=== PATIENT | female | born 1990 | race Caucasian/White ===

== ENCOUNTER 2020-01-17 13:33 | Inpatient (IN) | payer OTHER ==
--- NOTE | 2020-01-17 13:43 | P.HPOB ---
History of Present Illness H&P Date: 01/17/20 Chief Complaint: Strong regular uterine contractions, and yellow fluid leakage since 11 AM. This is a 29-year-old white female 2 para 1001 EDC 01/16/2020 at 40 and one sevenths weeks' gestation. Patient presents today with a history of strong uterine contractions, and yellow fluid leakage since 11 AM. Fetus is been active throughout the . Past medical history significant for anxiety and asthma. Past surgical history wisdom teeth extracted in the past. Current medications Flonase ALLERGY relief nasal spray as needed, Protonix inhaler as needed, vitamin daily, Prozac 20 mg daily, Zyrtec 10 mg daily. ALLERGIES none known. Family history significant for hypertension, hypothyroidism, type 2 diabetes, and cardiac disease. Social history patient is , her 's name is Larry. She denies alcohol tobacco or drug use. She works in the medical field. Obstetric history significant for positive group B strep cultures. Blood type is A+, rubella status immune. Pap smear, urine culture, hepatitis B surface antigen, HIV testing, rubella, gonorrhea and chlamydia cultures all negative. One-hour Glucola 79. On exam this is a pleasant white female who is 5 foot 4-1/2 inches, approximately 190 pounds, vital signs are stable and patient is afebrile. The general physical exam is within normal limits. Cervix is 6-7 cm dilated, 100% effaced, -1 station, vertex presentation. Artificial amniorrhexis of a fore bag reveals dark meconium-stained fluid. heart rate is consistent with reactive NST. Impression: 40 and one sevenths weeks intrauterine , active early labor. Positive group B strep cultures. Meconium-stained fluid. Plan: Penicillin G per hospital protocol. Close maternal and surveillance. Patient is requesting epidural, anesthesia is aware. Anticipate normal spontaneous vaginal delivery. Review of Systems Constitutional: Reports as per HPI Past Medical History Past Medical History: Asthma History of Any Multi-Drug Resistant Organisms: None Reported Additional Past Surgical History / Comment(s): [place] Teeth Extraction Past Anesthesia/Blood Transfusion Reactions: No Reported Reaction Past Psychological History: No Psychological Hx Reported, Anxiety Past Alcohol Use History: None Reported Past Drug Use History: None Reported - Past Family History Father Family Medical History: Diabetes Mellitus Additional Family Medical History / Comment(s): Type 2 Mother Family Medical History: Hypertension, Thyroid Disorder Additional Family Medical History / Comment(s): Hypothryoid Medications and Allergies Home Medications Medication Instructions Recorded Confirmed Type Budesonide [Pulmicort] 0.25 mg PO DAILY 12/01/15 12/01/15 History Fluticasone Nasal [place] [Flonase 1 spray EA NOSTRIL DAILY 12/01/15 12/01/15 History Nasal [place]] Multivit No.40/Iron/Folat1/Dha 1 tab PO DAILY 12/01/15 12/01/15 History [Prenate Essential Softgel] Allergies Allergy/AdvReac Type Severity Reaction Status Date / Time No Known Allergies Allergy Verified 12/01/15 06:11 Exam See dictation under HPI please Assessment and Plan Assessment: 40 and one sevenths weeks intrauterine , active spontaneous labor, meconium-stained fluid, positive group B strep cultures. All signs reassuring. Plan: Admit patient. Penicillin G prophylaxis per hospital protocol. Close maternal and surveillance. Analgesic options reviewed, patient requesting epidural. Anticipate normal spontaneous vaginal delivery. Time with Patient: Less than 30
[2020-01-17] MEDS ORDERED: CARBOPROST TROMETHAMINE 250 MCG/ML 1 ML AMP IM PRN (13:48)
[2020-01-17] MEDS ORDERED: TERBUTALINE 1 MG/ML VIAL SQ PRN (13:48)
[2020-01-17] MEDS ORDERED: OXYTOCIN 10 UNIT/ML 1 ML VIAL IM PRN (13:48)
[2020-01-17] MEDS ORDERED: METHYLERGONOVINE 0.2 MG/ML 1 ML AMP IM PRN (13:48)
[2020-01-17] MEDS ORDERED: LIDOCAINE 0.5% (PF) 5 MG/ML (50 ML SDV) SQ PRN (13:48)
[2020-01-17] MEDS ORDERED: PENICILLIN G POTASSIUM 5,000,000 UNIT in DEXTROSE 5% IN WATER 100 ML IVPB STA ×2 (13:51)
[2020-01-17] MEDS: LACTATED RINGERS 1,000 ML IV SCH ×2 (13:58→14:20)
[2020-01-17] MEDS ORDERED: OXYTOCIN 30 UNITS/500 ML NS 30 UNIT in SALINE 1 500ML.BAG IV SCH (14:00)
[2020-01-17 14:06] LABS: Basophils % (A) 0 %; Eosinophils # (A) 0.1 k/uL (0-0.7); Eosinophils % (A) 1 %; Lymphocytes # (A) 0.9 k/uL (1.0-4.8); Lymphocytes % (A) 11 %; MCH 29.2 pg (25.0-35.0); MCHC 33.3 g/dL (31.0-37.0); MCV 87.8 fL (80.0-100.0); Mean Platelet Volume 8.5; Monocytes # (A) 0.4 k/uL (0-1.0); Monocytes % (A) 5 %; Neutrophils # (A) 6.7 k/uL (1.3-7.7); Neutrophils % (A) 81 %; Platelet Count 210 k/uL (150-450); RBC 4.78 m/uL (3.80-5.40); RDW 12.9 % (11.5-15.5); WBC 8.3 k/uL (3.8-10.6)
[2020-01-17] MEDS ORDERED: fentaNYL (PF) 50 MCG/ML 5 ML AMP ONE (14:19)
[2020-01-17] MEDS ORDERED: SODIUM CHLORIDE 0.9% 100 ML BAG ONE (14:19)
[2020-01-17] MEDS ORDERED: ROPIVACAINE 5MG/ML 20ML VIAL ONE (14:19)
[2020-01-17] MEDS ORDERED: diphenhydrAMINE 50 MG/ML 1 ML VIAL IVP PRN ×2 (17:26)
[2020-01-17] MEDS ORDERED: ACETAMINOPHEN TAB 325 MG TAB PO PRN (17:26)
[2020-01-17] MEDS ORDERED: diphenhydrAMINE 50 MG CAP PO PRN (17:26)
[2020-01-17] MEDS ORDERED: diphenhydrAMINE 25 MG CAP PO PRN (17:26)
[2020-01-17] MEDS ORDERED: SIMETHICONE 80 MG CHEWABLE PO PRN (17:26)
[2020-01-17] MEDS ORDERED: BENZOCAINE/MENTHOL SPRAY 1 GM/SPRAY AEROSOL TOPICAL PRN (17:26)
[2020-01-17] MEDS ORDERED: HYDROCORTISONE 2.5% RECTAL CREAM 30 GM TUBE RECTAL PRN (17:26)
[2020-01-17] MEDS ORDERED: diphenhydrAMINE ELIXIR 25 MG/10 ML CUP PO PRN (17:26)
[2020-01-17] MEDS ORDERED: ZOLPIDEM 5 MG TAB PO PRN (17:26)
[2020-01-17] MEDS ORDERED: LANOLIN CREAM 5 GM TUBE TOPICAL PRN (17:26)
--- NOTE | 2020-01-17 17:26 | P.PROBDLV ---
Vaginal Delivery Note - . Vaginal Delivery Note: This is a 29-year-old female 2 para 1001 EDC 01/16/2040 and one sevenths weeks' gestation. Patient presented in active labor from home, she denied vaginal bleeding or fluid leakage. Fetus is been active throughout the . Rubella status immune. Group B strep cultures positive. Blood type B positive. Please see dictated history and physical for details. On admission patient was 6-7 cm dilated, 80% effaced, -2 station, vertex presentation. Artificial amniorrhexis revealed meconium-stained fluid. Patient requested an epidural, there were difficulties with hypotension as well as analgesic relief. heart tones remained reassuring throughout the first and second stages of labor. Patient became completely dilated at 1631 hrs. and began the second stage of labor at that time. She pushed successfully in the dorsal lithotomy position. Perineal body was prepped and draped in usual sterile fashion. 's head delivered occiput anterior and she restituted accordingly. There was a nuchal cord 1 that was reduced. The left or anterior shoulder was delivered from underneath the pubic symphysis at which time the oropharynx, nasopharynx, and external nares were all bulb suctioned on the perineal body. Patient was officially delivered of a liveborn female at 1705 hrs. Umbilical cord was doubly clamped and ligated. She was handed to waiting personnel scheduler where scores of 6 and 8 at one and 5 minutes respectively were given. Uterus is massaged, placenta delivers spontaneously, inspected and noted to be intact with trivascular cord and darkly meconium stained, at 1709 hrs. At this time the uterus is massaged. Bleeding was somewhat brisk, therefore Methergine IM 1 was given with immediate results. Careful inspection of cervix, vagina, perineum, periurethral, and perirectal areas revealed a small first-degree perineal laceration. This was repaired in the usual fashion with a single [id number] suture of Vicryl. Fundus is firm and in the midline now, symmetric and 18 week size. Bleeding is minimal. Total estimated blood loss 350 mL's. All sponge needle and instrument counts are correct at the end of the procedure. Infant weighs 3510 g or 7 pounds 11.8 ounces.
[2020-01-17] MEDS ORDERED: OXYTOCIN 20 UNITS/1000 ML NS 1,000 ML IV SCH (17:30)
[2020-01-17] MEDS ORDERED: PENICILLIN G POTASSIUM 2,500,000 UNIT in DEXTROSE 5% IN WATER 100 ML IVPB SCH ×2 (18:00)
[2020-01-17] MEDS: IBUPROFEN 600 MG TAB PO PRN (18:17)
[2020-01-17] MEDS: SENNOSIDES-DOCUSATE SODIUM 1 EACH TAB PO SCH (19:53)
[2020-01-18] MEDS: IBUPROFEN 600 MG TAB PO PRN ×3 (04:27→19:37)
--- NOTE | 2020-01-18 08:45 | P.PN ---
Subjective Progress Note Date: 01/18/20 Principal diagnosis: day #1 Slept well. Minimal lochia rubra. No pain. Objective - Vital Signs Vital signs: Vital Signs Temp 97.7 F 01/18/20 04:00 Pulse 70 01/18/20 04:00 Resp 16 01/18/20 04:00 BP 97/67 01/18/20 04:00 Pulse Ox 96 01/17/20 14:00 Intake & Output 01/17/20 01/18/20 01/18/20 18:59 06:59 18:59 Weight 84.822 kg Other: # Voids 1 1 - Constitutional General appearance: Present: average body habitus, cooperative - EENT Eyes: Present: PERRLA ENT: Present: hearing grossly normal - Neck Thyroid: bilateral: normal size - Respiratory Respiratory: bilateral: CTA - Cardiovascular Rhythm: regular - Gastrointestinal Gastrointestinal Comment(s): Fundus firm, midline, symmetric, 18 week size, nontender. General gastrointestinal: Present: normal bowel sounds - Integumentary Integumentary: Present: normal - Neurologic Neurologic: Present: CNII-XII intact - Musculoskeletal Musculoskeletal: Present: gait normal, strength equal bilaterally - Psychiatric Psychiatric: Present: A&O x's 3, appropriate affect, intact judgment & insight - Labs CBC & Chem 7: 01/17/20 13:50 Labs: Abnormal Lab Results - Last 24 Hours (Table) 01/17/20 Range/Units 13:50 Lymphocytes # 0.9 L (1.0-4.8) k/uL Assessment and Plan Assessment: Doing well day #1 Plan: Continue care. Baby being monitored by oyster culler for positive group B strep status. Likely discharge home tomorrow. Time with Patient: Less than 30
[2020-01-18] MEDS: SENNOSIDES-DOCUSATE SODIUM 1 EACH TAB PO SCH (09:04)
[2020-01-19] MEDS: SENNOSIDES-DOCUSATE SODIUM 1 EACH TAB PO SCH ×2 (00:36→11:57)
--- NOTE | 2020-01-19 08:06 | P.DS ---
Providers Date of admission: 01/17/20 13:37 Expected date of discharge: 01/19/20 Attending physician: Cherie Lieberman Primary care physician: Stated None Hospital Course: This is a 29-year-old white female 2 para 1001 EDC 01/16/2040 and one sevenths weeks' gestation. Patient presented in active spontaneous labor. remarkable for positive group B strep cultures, blood type A positive, rubella status immune. Please see dictated history and physical for details. Artificial amniorrhexis revealed meconium-stained fluid. Patient progressed well through the first stage of labor and became completely dilated at 1631 hrs. She pushed well in the second stage of labor and gave to a liveborn female infant with scores of 6 and 8 at one and 5 minutes respectively. weighed 7 pounds 11.8 ounces or 3510 g. Only one dose of penicillin G was given. For this reason was monitored for 48 hours per foreign food cook specialty. This morning the patient is doing well. She is voiding, ambulating and passing flatus without difficulty. Vital signs are stable and she is afebrile. Fundus is firm and in the midline, symmetric and 18 week size. Extremities are negative for edema. [place] is doing well. Patient is judged to be in very good condition for discharge home. She will follow-up with me in the office in 6 weeks. I have reminded her no intercourse, tampons or douching. We have discussed options for contraception and we will review this further in the office. She will use Advil or Aleve as needed for pain. Continue taking vitamin daily. Call with any fevers shakes or chills, foul smelling or copious lochia, with the passage of large blood clots, or indeed with any concerns. Patient Condition at Discharge: Good Plan - Discharge Summary Discharge Rx Participant: No New Discharge Prescriptions: No Action Multivit No.40/Iron/Folat1/Dha [Prenate Essential Softgel] 1 tab PO DAILY Fluticasone Nasal [place] [Flonase Nasal [place]] 1 spray EA NOSTRIL DAILY Budesonide [Pulmicort] 0.25 mg PO DAILY FLUoxetine HCL [PROzac] 40 mg PO DAILY Discharge Medication List Budesonide [Pulmicort] 0.25 mg PO DAILY 12/01/15 [History] Fluticasone Nasal [place] [Flonase Nasal [place]] 1 spray EA NOSTRIL DAILY 12/01/15 [History] Multivit No.40/Iron/Folat1/Dha [Prenate Essential Softgel] 1 tab PO DAILY 12/01/15 [History] FLUoxetine HCL [PROzac] 40 mg PO DAILY 01/17/20 [History] Follow up Appointment(s)/Referral(s): Cherie Leiberman MD [STAFF PHYSICIAN] - 6 Weeks Discharge Disposition: HOME SELF-CARE
[2020-01-19 10:13] VITALS: BP 115/75; PULSE 76; RESP 18; TEMP 98
== END 2020-01-19 13:40 | disposition home or self-care (01) | DRG 807 ==
LOC: FBPOP 13:33 → 4FBP 13:37
PROVIDERS: ADMIT Obstetrics & Gynecology; ATTEND Obstetrics & Gynecology
PROC: 3E0R3BZ Introduction of Anesthetic Agent into Spinal Canal, Percutaneous Approach (ICD-10-PCS; principal; 2020-01-17)
PROC: 0HQ9XZZ Repair Perineum Skin, External Approach (ICD-10-PCS; principal; 2020-01-17)
PROC: 00HU33Z Insertion of Infusion Device into Spinal Canal, Percutaneous Approach (ICD-10-PCS; principal; 2020-01-17)
PROC: 10E0XZZ Delivery of Products of Conception, External Approach (ICD-10-PCS; principal; 2020-01-17)
DX: O77.0 Labor and delivery complicated by meconium in amniotic fluid (principal); Z37.0 Single live birth; O69.81X0 Labor and delivery complicated by cord around neck, without compression, not applicable or unspecified; O70.0 First degree perineal laceration during delivery; O99.52 Diseases of the respiratory system complicating childbirth; J45.909 Unspecified asthma, uncomplicated; F41.9 Anxiety disorder, unspecified; O99.344 Other mental disorders complicating childbirth; O99.824 Streptococcus B carrier state complicating childbirth; Z79.51 Long term (current) use of inhaled steroids; Z79.899 Other long term (current) drug therapy; Z3A.40 40 weeks gestation of pregnancy; Z82.49 Family history of ischemic heart disease and other diseases of the circulatory system; Z83.3 Family history of diabetes mellitus; Z83.49 Family history of other endocrine, nutritional and metabolic diseases
CPT/HCPCS: 85025; 86850; 86900; 86901